=== PATIENT | male | born 1970 | race Caucasian/White ===

== ENCOUNTER 2024-06-09 18:45 | Emergency (ER) | payer OTHER | END 2024-06-09 20:18 | disposition home or self-care (01) | LOC: JP.ED 18:45 | DX: S46.202A Unspecified injury of muscle, fascia and tendon of other parts of biceps, left arm, initial encounter (principal); Z91.048 Other nonmedicinal substance allergy status; Z88.0 Allergy status to penicillin; Z88.8 Allergy status to other drugs, medicaments and biological substances; X58.XXXA Exposure to other specified factors, initial encounter | CPT/HCPCS: 99283 ==

== ENCOUNTER 2025-07-01 12:27 | Emergency (ER) | payer OTHER | END 2025-07-01 14:16 | disposition home or self-care (01) | LOC: JP.ED 12:27 | DX: R07.89 Other chest pain (principal); E78.00 Pure hypercholesterolemia, unspecified; Z88.0 Allergy status to penicillin; Z79.899 Other long term (current) drug therapy | CPT/HCPCS: 71046; 71046-26; 93005; 93010; 99284; 99285 ==